=== PATIENT | female | born 1985 | race Caucasian/White ===

== ENCOUNTER 2019-05-09 20:34 | Emergency (ER) | payer BC ==
[~2019-05-09] VITALS: Ht 162.6 cm; Wt 88.5 kg
[2019-05-09 20:50] VITALS: Ht 162.6 cm; Wt 88.5 kg
[2019-05-09 23:30] VITALS: BP 112/72
== END 2019-05-09 23:30 | disposition home or self-care (01) ==
LOC: ED 20:34
DX: S59.801A Other specified injuries of right elbow, initial encounter (principal); N80.9 Endometriosis, unspecified; M79.7 Fibromyalgia; W03.XXXA Other fall on same level due to collision with another person, initial encounter; Y93.66 Activity, soccer; Y92.322 Soccer field as the place of occurrence of the external cause; Y99.8 Other external cause status
CPT/HCPCS: J1885; J2270

== ENCOUNTER 2019-05-10 13:11 | Emergency (ER) | payer BC ==
[~2019-05-10] VITALS: Ht 162.6 cm; Wt 88.5 kg
[2019-05-10 13:38] VITALS: BP 115/75; Ht 162.6 cm; Wt 88.5 kg
== END 2019-05-10 16:00 | disposition left against medical advice (07) ==
LOC: ED 13:11
DX: Z53.21 Procedure and treatment not carried out due to patient leaving prior to being seen by health care provider (principal)